=== PATIENT | female | born 1995 | race Two or more races ===

== ENCOUNTER 2018-05-09 16:17 | Emergency (ER) | END 2018-05-09 20:05 | disposition home or self-care (01) ==

== ENCOUNTER 2018-12-01 10:00 | Inpatient (IN) | payer OTHER ==
[~2018-12-01] VITALS: Ht 157.5 cm; Wt 65.5 kg
[2018-12-01 10:25] VITALS: Ht 157.5 cm; Wt 65.5 kg
[2018-12-01] MEDS ORDERED: PNV11TAB PO (10:25)
[2018-12-01 10:27] VITALS: BP 103/58; PULSE 68; RESP 18
[2018-12-01] MEDS ORDERED: DEXTROSE 5%-LR 1,000 ML IV SCH (12:35)
[2018-12-01] MEDS ORDERED: LACTATED RINGER'S 1,000 ML IV SCH ×3 (12:35→19:59)
[2018-12-01] MEDS ORDERED: MISOPROSTOL 200 MCG TAB PR PRN ×3 (13:00→20:00)
[2018-12-01] MEDS ORDERED: METHYLERGONOVINE 0.2 MG INJ IM PRN ×3 (13:00→20:00)
[2018-12-01] MEDS ORDERED: LIDOCAINE 1% (MPF) 30 ML INJ INJ PRN (13:00)
[2018-12-01] MEDS ORDERED: CARBOPROST 250 MCG INJ IM PRN ×3 (13:00→20:00)
[2018-12-01] MEDS ORDERED: OXYTOCIN 30 UNITS/LR 500 ML IV PRN ×3 (13:00→20:00)
[2018-12-01] MEDS ORDERED: OXYTOCIN 30 UNITS/LR 500 ML IV SCH ×2 (13:00)
[2018-12-01] MEDS ORDERED: TERBUTALINE 1 ML ONE (14:13)
--- NOTE | 2018-12-01 14:14 | PREAC ---
Date/Time of Note Date/Time of Note DATE: 12/01/18 TIME: 14:14 Anesthesia Eval and Record Evaluation Time Pre-Procedure Interview DATE: 12/01/18 TIME: 14:14 Age 23 Sex female NPO: 8 hrs Preoperative diagnosis Nonreassuring heart rate Planned procedure C/S Past Medical History Past Medical History: None Surgery & Anesthesia Issues No known issue Meds Anticoagulation: No Beta Brittani within 24 hr: No Reason Beta Brittani not given: Pt. not on B-Brittani Reported Medications [id number] ( 19) 1 Each Tablet, 1 TAB PO DAILY, TAB 12/01/18 Current Medications Lactated Ringer's 1,000 ml @ 125 mls/hr Q8H IV ; Start 12/01/18 at 12:35 Lactated Ringer's 1,000 ml @ 125 mls/hr Q8H IV ; Start 12/01/18 at 12:35 Dextrose/Lactated Ringer's 1,000 ml @ 125 mls/hr Q8H IV ; Start 12/01/18 at 12:35 Lidocaine (Xylocaine 1% (Mpf)) 30 ml ONCE PRN INJ .EPISIOTOMY; Start 12/01/18 at 13:00 Oxytocin/Lactated Ringer's 500 ml @ 500 mls/hr ONCE POST IV ; Start 12/01/18 at 13:00 Oxytocin/Lactated Ringer's 500 ml @ 125 mls/hr POST IV ; Start 12/01/18 at 13:00 Oxytocin/Lactated Ringer's 500 ml @ 0 mls/hr ONCE PRN IV .VAGINAL BLEEDING; St art 12/01/18 at 13:00 Methylergonovine Maleate (Methergine) 0.2 mg ONCE PRN IM .VAGINAL BLEEDING; Start 12/01/18 at 13:00 Carboprost Tromethamine (Hemabate) 250 mcg ONCE PRN IM .VAGINAL BLEEDING; Start 12/01/18 at 13:00 Misoprostol (Cytotec) 1,000 mcg ONCE PRN SC .VAGINAL BLEEDING; Start 12/01/18 at 13:00 Meds reviewed: Yes Allergies Coded Allergies: No Known Allergy (Unverified , 05/09/18) Allergies Reviewed: Yes Labs/Studies Labs Reviewed: Reviewed by anesthesiologist test: Positive Pre-procedure Exam Last vitals Vital Signs Date Temp Pulse Resp B/P (MAP) Pulse Ox O2 O2 Flow FiO2 Time Delivery Rate 12/01/18 97.9 68 18 103/58 Room Air 10:27 (73) Airway: Adequate mouth opening Mallampati: Mallampati II Teeth: Normal Lung: Normal Heart: Normal ASA Physical Status ASA physical status: 2 Emergency: E Planned Anesthetic General/MAC: ETT Neuraxial: Spinal Planned Pain Management Sub-arachniod narcotics, Parenteral pain med Pre-operative Attestations Prior to commencing anesthesia and surgery, the patient was re-evaluated, there was verification of: *The patient's identity *The results of appropriate recent lab work and preoperative vital signs *The above evaluation not changing prior to induction *Anesthetic plan, risk benefits, alternative and complications discussed with patient/family; questions answered; patient/family understands, accepts and wishes to proceed. LALITA MCCABE MD Dec 01, 2018 14:14
[2018-12-01] MEDS ORDERED: CEFAZOLIN 2 GM/50 ML (PMX) 50 ML IVPB SCH (14:30)
--- NOTE | 2018-12-01 14:39 | HP ---
Date/Time of Note Date/Time of Note DATE: 12/01/18 TIME: 14:30 OB - History Hx of Present Free Text/Dictation 23 y.o primigravida at 36w5d was sent from antepartum test room for prolong bradycardia for extended observation. She is known to have A1DM. this am BS 89 During the observation few prolong bradycardia ,last one even down to 60"s for 6min Primary c/s was chosen immediately . explain the situation to patient and over the phone,agree to receive c/s Chief Complaint: prolong bradycardia Estimated Due Date: Dec 24, 2018 : 1 Para: 0 Spontaneous : 0 Therapeutic : 0 Care: Good Care Ultrasounds: Normal mid trimester US Obstetrical Complications: Gestational Diabetes Medical Complications: None Past Family/Social History * Past Medical, Surgical, Family and Obstetric Histories reviewed from chart. Blood Type: O+ Rubella: immune RPR/VDRL: Negative GBS Status: Negative HBsAG: Negative OB Admission Exam Vital Signs Vital Signs Vital Signs Date Temp Pulse Resp B/P (MAP) Pulse Ox O2 O2 Flow FiO2 Time Delivery Rate 12/01/18 97.9 68 18 103/58 Room Air 10:27 (73) Physical Exam HEENT: WNL Heart: Rhythm Normal Lungs: Clear, Equal Abdomen: WNL Extremities: Normal Reflexes: Normal Heart Rate: 130's Accelerations: Accelerations Present Decelerations: Prolonged Decelerations Varibility: Moderate Contractions on Admission: >10 Minutes Apart Intensity: Mild Last 72 hourBlood Glucose Bedside Glucose - 72 Hours Test 12/01/18 10:50 Bedside Glucose 89 mg/dL (70-220) OB Assessment/Plan Other Assessment: A IUP 36w5d A1DM Prolong bradycardia Plan: Section SAFIA ISRAEL MD Dec 01, 2018 14:39
[2018-12-01] MEDS ORDERED: OXYTOCIN 30 UNITS/LR 500 ML IV ONE (15:10)
[2018-12-01] MEDS ORDERED: morphine SULFATE/PF (10 MG/10 ML) INJ ONE (15:10)
[2018-12-01] MEDS ORDERED: ONDANSETRON 4 MG INJ ONE (15:11)
[2018-12-01] MEDS ORDERED: METOCLOPRAMIDE 10 MG INJ ONE (15:11)
[2018-12-01] MEDS ORDERED: OXYTOCIN 10 UNIT INJ ONE ×2 (15:11→15:33)
[2018-12-01] MEDS ORDERED: EPHEDrine 25 MG/5 ML SYG ONE (15:33)
[2018-12-01] MEDS ORDERED: CEFAZOLIN 1 GM INJ ONE (15:33)
[2018-12-01] MEDS ORDERED: PHENYLephrine (100 MCG/ML) 10ML SYG ONE (16:04)
[2018-12-01] MEDS ORDERED: DIPHENHYDRAMINE 50 MG INJ IV PRN ×2 (17:00→20:00)
[2018-12-01] MEDS ORDERED: morphine 2 MG INJ IV PRN ×2 (17:00)
[2018-12-01] MEDS ORDERED: morphine SULFATE/PF (10 MG/10 ML) INJ SPINAL ONE (17:00)
[2018-12-01] MEDS ORDERED: NALOXONE (0.4 MG/ML) INJ IV PRN (17:00)
[2018-12-01] MEDS ORDERED: ONDANSETRON 4 MG INJ IV PRN ×2 (17:00→20:00)
[2018-12-01] MEDS ORDERED: EPHEDrine SULFATE 50 MG/5 ML SYG IV PRN (17:00)
--- NOTE | 2018-12-01 19:27 | OPPN ---
Date/Time of Note Date/Time of Note DATE: 12/01/18 TIME: 19:20 Operative Report Planned Procedure Free Text/Dictation primigravida at 36w5d A2DM multiple prolong bradycardia down to 60's for 7min Pc/s chosen Procedure date Dec 01, 2018 Procedure(s) primary low transverse section Performed by see signature line Toilet Products Molder: GEORGE HUI MD 2nd Toilet Products Molder none Anesthesiologist: LALITA MCCABE MD Pre-procedure diagnosis IUP 36w5d A1DM CAT II ( prolong bradycardia) [id number] Anesthesia Type: Hxyot3y spinal Post-Procedure Post-procedure diagnosis delivered normal male infant Findings Live Baby [m], Apgars [8] and [9], weight [], position [LOT], [vx ] presentation [no]cord. Estimated Blood Loss: 300 - 400 mls Specimen(s) placenta Grafts/Implant(s) none Complication(s) none SAFIA ISRAEL MD Dec 01, 2018 19:27
[2018-12-01 19:50] VITALS: BP 98/49; PULSE 72; RESP 19
[2018-12-01] MEDS ORDERED: LANOLIN HPA 1 PKT TOP PRN (20:00)
[2018-12-01] MEDS ORDERED: ZOLPIDEM 5 MG TAB PO PRN (20:00)
[2018-12-01] MEDS: SENNA/DOCUSATE NA (8.6MG/50MG) TAB PO SCH (21:00)
--- NOTE | 2018-12-02 00:55 | OPR ---
DATE OF OPERATION: 12/01/2018 PREOPERATIVE DIAGNOSES: at 36 weeks 5 days, A1 diabetes mellitus and the prolonged bradyca rdia down to 60s for 7 minutes on multiple occasions, not in labor. POSTOPERATIVE DIAGNOSES: Delivered normal male infant. There are no cords. Fluid was clear . ANESTHESIA: Spinal. ANESTHESIOLOGIST: . SURGEON: Vikash Barber MD INSULATION SPRAYER: Beba George MD ESTIMATED BLOOD LOSS: 400 mL. DESCRIPTION OF PROCEDURE: Under proper induction of spinal anesthesia, the patient was placed in the frog position. Cancino catheter was introduced into the bladder under sterile condition, repositioned to supine. Abdominal wall was prepped and draped in usual aseptic manner. A Pfannenstiel incision was made. The incision was carried down through the subcutaneous tissue to the anterior recti fascia which was incised transversely in length of the incision. Fascial flap was created by blunt and sha rp dissection of tendinous attachment cephalad and 2 rectus muscles were split in midline and periton eal cavity was entered. Bladder blade was introduced. A transverse incision was made above the uter ovesical reflection. Incision was carried down layer by layer until reached the amniotic membrane an d incision was extended bilaterally with the bandage scissors and membrane was ruptured, which reveal ed clear amniotic fluid, moderate in amount. Normal male infant was born in left occiput tra nsverse position. Mouth and nose were clean. Cord was delayed clamped after 30 seconds and the infa nt was delivered to the respiratory care personnel for further care. Cord blood was obtained and sarah centa was removed manually and cavity was completely explored after uterus was exteriorized. Uterine incision was closed with #1 chromic catgut in continuous interlocking manner on the first layer, sec ond layer using 0 chromic catgut including the serosa in continuous manner. No bleeder was noted. T he abdominal cavity was irrigated with water after all the sponge count taken which was correct. The uterus was relocated in abdominal cavity. Uterine incision was rechecked for the bleeder which was intact. A piece of Surgicel was laid on the incisional site. The parietal peritoneum was closed usi ng 0 chromic catgut in continuous manner. Muscle was closed with 0 chromic catgut in continuous henderson er. Fascia was closed with #1 Vicryl intermittent interlocking manner in 2 segments after the piece of Surgicel was laid on subfascial layer. Subcutaneous tissue was irrigated with water. This layer was approximated with a 2-0 plain after the adequate hemostasis was secured. Skin was closed with a 4-0 Monocryl in subcuticular manner. Steri-Strip applied. A pressure dressing applied. Estimated b lood loss was approximately 400 mL. The patient withstood the procedure well and was sent to the rec overy room in stable condition. Urine output was approximately 200 mL. The patient was sent to home . Final sponge count, needle count and instrument count were correct. Dictated By: VIKASH GARIBAY/TRAVIS Conf#: [id number] DID#: [id number]
[2018-12-02 04:00] VITALS: BP 97/52; PULSE 99; RESP 20
[2018-12-02] MEDS: KETOROLAC 30 MG INJ IV PRN ×2 (05:53→14:53)
[2018-12-02] MEDS: LACTATED RINGER'S 1,000 ML IV SCH (06:21)
[2018-12-02 08:00] VITALS: BP 96/55; PULSE 97; RESP 19
--- NOTE | 2018-12-02 08:01 | QN ---
Documentation Comment passing flatus VSS max T 99.6 abdomen soft wound dry calf neg for tenderness lochia mod A stable post primary c/s P as ordered SAFIA ISRAEL MD Dec 02, 2018 08:01
[2018-12-02] MEDS: SENNA/DOCUSATE NA (8.6MG/50MG) TAB PO SCH ×2 (09:06→23:30)
--- NOTE | 2018-12-02 11:52 | PAC ---
Date/Time of Note Date/Time of Note DATE: 12/02/18 TIME: 11:51 Post-Anesthesia Notes Post-Anesthesia Note Last documented vital signs Vital Signs Date Temp Pulse Resp B/P (MAP) Pulse Ox O2 O2 Flow FiO2 Time Delivery Rate 12/02/18 98.4 97 19 96/55 (69) Room Air 08:00 12/01/18 100 19:50 Activity: WNL Respiratory function: WNL Cardiovascular function: WNL Mental status: Baseline Pain reasonably controlled: Yes Hydration appropriate: Yes Nausea/Vomiting absent: Yes LALITA MCCABE MD Dec 02, 2018 11:52
[2018-12-02 16:00] VITALS: BP 93/57; PULSE 92; RESP 19
[2018-12-02] MEDS: IBUPROFEN 600 MG TAB PO SCH ×2 (17:41→23:30)
[2018-12-02 20:00] VITALS: BP 92/50; PULSE 82; RESP 19
[2018-12-02] MEDS ORDERED: MEASLES,MUMPS,RUBELLA VACCINE INJ SC* ONE (20:00)
[2018-12-02] MEDS: OXYCODONE/ACETAMINOPHEN (5/325) TAB PO PRN (23:30)
[2018-12-03] MEDS: LACTATED RINGER'S 1,000 ML IV SCH (00:40)
[2018-12-03 04:14] VITALS: BP 93/52; PULSE 92; RESP 19
[2018-12-03] MEDS: IBUPROFEN 600 MG TAB PO SCH ×4 (05:49→23:55)
[2018-12-03 08:30] VITALS: BP 105/62; PULSE 78; RESP 18
[2018-12-03] MEDS: SENNA/DOCUSATE NA (8.6MG/50MG) TAB PO SCH ×2 (12:28→20:52)
[2018-12-03] MEDS: OXYCODONE/ACETAMINOPHEN (5/325) TAB PO PRN ×2 (14:51→20:52)
[2018-12-03 16:08] VITALS: BP 101/56; PULSE 72; RESP 18
[2018-12-03] MEDS ORDERED: MEASLES,MUMPS,RUBELLA VACCINE INJ SC* ONE (17:00)
[2018-12-03 20:00] VITALS: BP 104/58; PULSE 80; RESP 19
--- NOTE | 2018-12-03 21:51 | NSTRPT ---
NST Information Datetime Report Generated by CPN: 12/03/2018 21:50 Datetime: 12/01/2018 08:37 NST Information EGA: 36.5 Datetime: 12/01/2018 08:33 Test Number: 1 Time on Monitor: 12/01/2018 09:10 Time off Monitor: 12/01/2018 09:46 NST Duration (Min): 36 Reason for NST: Diabetes Mellitus Test and Monitor Explained: Monitor Explained; Test Explained; Verbalized Understanding Pulse: 67 Resp: 18 SBP: 97 DBP: 52 Test Evaluation NST Interventions: Reposition Patient; Other NST Interventions Other: oxygen applied per mask @ 10L per minute Contraction Frequency: x1/110/strong/pain level 0 FHR Baseline : 130 Variability: Moderate 6-25bpm Accelerations: 15X15 Decelerations: Variable FHR Category: Category II NST Results: Reactive Provider Notified: Dr Burgess/Dr Barber/Dr George Comments: To US-LOIS 11.0 cm cephalic Pt states she did not do a FBS today, yesterday FBS was 77. Pt having contraction with application of US-unable to hear FHR so pt was repositioned to left si de for pickup of FHTs. Audible decel 86-90 BPM, pulse oximeter applied with maternal pulse of 80BPM , FHT 90 BPM with recovery of FHR to 130 BPM at 0913. O2 applied at 10L/min at 0912 _ pt remains on L side.09 Dr Burgess informed of decel with application of monitor-recommends pt be sent to the [facility] . 919-moderate variabilty with accel to [address] Barber office called by Mandy Kincaid , no answer, called cell with no answer, message left regpriti ashu pt status _ pt will be sent to triage for extended monitoring . Dr George, laborist, notifed of decel with UC upon initial assessment in NST _ that pt now has Catagory ! tracing with accels , mode rate variability _ no further decels. Report to Mandy Parker RN, travel service consultant, _ Mandy Irizarry RN,set up and charger, reggarding decel, recovery _ current tracing which is catagory 1 currently. records _ prelim inary US report faxed to triage Electronically Signed By E-Signature: with User ID: [id number]
[2018-12-04 04:01] VITALS: BP 102/58; PULSE 72; RESP 18
[2018-12-04] MEDS: IBUPROFEN 600 MG TAB PO SCH ×2 (05:48→12:37)
[2018-12-04 08:00] VITALS: BP 108/63; PULSE 80; RESP 18
[2018-12-04] MEDS ORDERED: DIPHTH/TET/ACEL PERTUSS (ADULT) 0.5 ML VIAL IM* ONE (09:00)
--- NOTE | 2018-12-04 09:31 | PD.PPDC ---
ELECTRIC SHOVEL OPERATOR Discharge Instruction Diagnosis [id number] Final Diagnosis: Ijmqv7g s/p primary c/s Condition [id number] Patient Condition: Ldyfy8n Stable Diet Dhesx1Bs Diet: Wqljn1c Resume Regular Diet Activity/Restrictions Zyvpd8Vc Activity: Cvdhm5i May Shower Ugqrp4Dr Restrictions: Hpmiz6p No Exercising No Lifting Minimize Stair-climbing No Sexual Activity Nothing in the Vagina No Hamill No Tampons, douche Follow-up Follow-up with Physician: 2, Week/Weeks Return to clinic for 2 Aeajg9Hy MUSIC CRITIC Instructions: Mmtpg8x Fever greater than 101 Chills Worsening abdominal pain Excessive Vaginal Bleeding More than 2 pads per hour Unable to tolerate diet [id number] OB Instructions: Evcph0v Breast Tenderness Depression Blurried Vision Headache [id number] Surgical Instructions: Cmukb4x Incisional Drainage Incisional Redness SAFIA ISRAEL MD Dec 04, 2018 09:31
--- NOTE | 2018-12-04 09:35 | DS ---
Date/Time of Note Date/Time of Note DATE: 12/04/18 TIME: 09:32 Obstetrical Discharge Record Final Diagnosis Final Diagnosis: Term delivered Other Final Diagnosis profound variable deceleration Section Section: Primary Complications Other (profound variable deceleration) Augmentation: No Induction: No Rupture of Membranes: No Condition on Discharge Physical Assessment Last Vitals: vss afebrile Voiding: Yes Bowel Movement: Yes Breast: Soft, non-tender Fundus: Firm Abdomen and Incision: incision dry abdomen soft Episiotomy: n/a Calf Tenderness: No Patient Condition: Stable SAFIA ISRAEL MD Dec 04, 2018 09:35
[2018-12-04] MEDS: SENNA/DOCUSATE NA (8.6MG/50MG) TAB PO SCH (10:18)
[2018-12-04] MEDS: OXYCODONE/ACETAMINOPHEN (5/325) TAB PO PRN (10:22)
[2018-12-04] MEDS ORDERED: LIDOCAINE 4% CR ONE (13:33)
== END 2018-12-04 14:45 | disposition home or self-care (01) | DRG 788 ==
LOC: OBT 10:00 → L-D 10:01 → OBT 12:30 → L-D 12:30 → PP1 19:45
PROVIDERS: ADMIT Obstetrics & Gynecology; ATTEND Obstetrics & Gynecology
PROC: 10D00Z1 Extraction of Products of Conception, Low, Open Approach (ICD-10-PCS; principal; 2018-12-01 15:30)
DX: O76 Abnormality in fetal heart rate and rhythm complicating labor and delivery (principal); O24.420 Gestational diabetes mellitus in childbirth, diet controlled; Z3A.36 36 weeks gestation of pregnancy; Z37.0 Single live birth
CPT/HCPCS: 76818; 82962; 85025; 85610; 85730; 86592; 86850; 86900; 86901; 87340; 88307; 90715; 99464; G0463; J0690; J1885; J2274; J2370; J2405; J2590; J2765; J3105; J7120; J7121